=== PATIENT | female | born 1965 ===

== ENCOUNTER 2017-07-20 15:25 | Inpatient (IN) | payer BC ==
[~2017-07-20] VITALS: Ht 170.2 cm; Wt 49.9 kg
[2017-07-20] MEDS ORDERED: IV NORMAL SALINE 1000 ML BAG IV ONE (15:45)
[2017-07-20] MEDS ORDERED: ACETAMINOPHEN ES 500 MG TABLET PO ONE (15:45)
--- NOTE | 2017-07-20 15:45 | NUR ---
PT IS VERBALLY RESPONSIVE AND ANSWERS SOME QUESTIONS APPROPRIATELY, BUT IS UNABLE TO NAME ALL CURRENT MEDS AND DOSAGES.
--- NOTE | 2017-07-20 15:46 | NUR ---
Patient is seen using her electronic device, calm & cooperative, still disoriented at this time
[2017-07-20] MEDS ORDERED: [UNRECOGNIZED DRUG - REMARK] (15:48)
[2017-07-20] MEDS ORDERED: DIAZ10TA PO (15:48)
[2017-07-20] MEDS ORDERED: METHOTREXATE (15:48)
[2017-07-20] MEDS ORDERED: ACETAMINOPHEN ES 500 MG TABLET ONE (15:53)
[2017-07-20 16:05] LABS: BASOPHILS % (AUTO) 0.1 % (0.0-2.0); EOSINOPHILS % (AUTO) 0.4 % (0.0-7.0); HEMATOCRIT 35.4 % (31.2-41.9); HEMOGLOBIN 12.1 g/dL (10.9-14.3); LYMPHOCYTES # (AUTO) 1.5 K/uL (20.0-40.0); LYMPHOCYTES % (AUTO) 16.8 % (20.5-51.5); MEAN CORPUSCULAR HGB CONC 34 g/dL (32.3-35.6); MEAN CORPUSCULAR VOLUME 90.7 fL (75.5-95.3); MONOCYTES # (AUTO) 0.7 K/uL (2.0-10.0); MONOCYTES % (AUTO) 7.1 % (0.0-11.0); NEUTROPHILS # (AUTO) 6.9 K/uL (1.8-8.9); NEUTROPHILS % (AUTO) 75.6 % (38.5-71.5); PLATELET COUNT (AUTO) 155 K/uL (179-408); WHITE BLOOD COUNT (AUTO) 9.1 K/uL (3.8-11.8)
[2017-07-20 16:16] LABS: ALANINE AMINOTRANSFERASE 22 U/L (14-59); ALKALINE PHOSPHATASE 55 U/L (50-136); ASPARTATE AMINOTRANSFERASE 32 U/L (15-37); BILIRUBIN,DIRECT 0.1 mg/dL (0.0-0.2); BILIRUBIN,TOTAL 0.4 mg/dL (0.2-1.0); CARBON DIOXIDE 29 mmol/L (21-32); CHLORIDE 103 mmol/L (98-107); GLUCOSE 111 mg/dL (74-106); POTASSIUM 3.8 mmol/L (3.5-5.1); TOTAL PROTEIN, SERUM 6.7 g/dL (6.4-8.2); UREA NITROGEN, BLOOD 11 mg/dL (7-18)
[2017-07-20 16:17] LABS: ACETAMINOPHEN < 2.0 ug/mL (10-30)
[2017-07-20] MEDS ORDERED: CEFTRIAXONE 1 G in IV DEXTROSE 5% 50 ML IV ONE (16:30)
[2017-07-20] MEDS ORDERED: CEFTRIAXONE 1 G VIAL ONE (16:40)
[2017-07-20] MEDS ORDERED: RANI150C4 PO (16:49)
--- NOTE | 2017-07-20 16:49 | NUR ---
PT STILL UNABLE TO RECALL ALL MEDICATIONS AND DOSAGES.
[2017-07-20 17:05] LABS: ETHANOL < 3 MG/DL (0-0)
--- NOTE | 2017-07-20 17:24 | NUR ---
Still for urine sample, endorsed to RN Letts accordingly
[2017-07-20 17:36] VITALS: BP 139/95
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
--- NOTE | 2017-07-20 18:40 | NUR ---
Pt is starting to wake up. PT states that she wants to leave AMA. Her is here states that she is back on her baseline. Got hold of Dr Garcia notified of situation and states that he will come and see pt SHERYL.
--- NOTE | 2017-07-20 19:45 | NUR ---
RECEIVED REPORT FROM [facility] RN THAT PATIENT WAS JUST BROUGHT UP TO THE FLOOR TO BE ADMITTED, BUT WANTS TO GO HOME. REPORTED THAT PATIENT IS WAITING FOR DR. UNGER TO BE DISCHARGED HOME. AT BEDSIDE. WAITING FOR D/C ORDER. ALL NEEDS ATTENDED.
--- NOTE | 2017-07-20 19:55 | NUR ---
RECEIVED ORDER FOR PATIENT TO BE DISCHARGED HOME. INSULATION HELPER NOTIFIED AND AWARE PATIENT WILL BE DISCHARGED HOME. AT BEDSIDE TO TAKE PATIENT HOME. PATIENT IS A/O X3. EAGER TO GO HOME.
--- NOTE | 2017-07-20 20:30 | NUR ---
PATIENT AND GIVEN DISCHARGE INSTRUCTIONS. PERSONAL BELONGINGS NOTED IN CONTRABAND LOCKER #4 AND HOME MEDICATIONS RETURNED BACK TO PATIENT. AT BEDSIDE. PATIENT VERBALIZED DISCHARGE TEACHING AND INSTRUCTIONS. VSS UPON DISCHARGE. PATIENT LEFT HOSPITAL IN STABLE CONDITION. ALL NEEDS ATTENDED.
== END 2017-07-20 20:30 | disposition home or self-care (01) | DRG 922 ==
LOC: ER 15:25 → TELE 17:31
PROVIDERS: ADMIT Internal Medicine; ATTEND Internal Medicine
DX: T67.5XXA Heat exhaustion, unspecified, initial encounter (principal); G92 Toxic encephalopathy; D69.6 Thrombocytopenia, unspecified; K51.90 Ulcerative colitis, unspecified, without complications; I67.2 Cerebral atherosclerosis; T42.4X1A Poisoning by benzodiazepines, accidental (unintentional), initial encounter; X30.XXXA Exposure to excessive natural heat, initial encounter; Y92.488 Other paved roadways as the place of occurrence of the external cause; M06.9 Rheumatoid arthritis, unspecified; G89.4 Chronic pain syndrome; I70.0 Atherosclerosis of aorta
CPT/HCPCS: 36415; 70450; 71045; 83605; 85025; 87040; 93005; A4663; A9150; G0480; G0480-TC; J0696; J3490; J7030